=== PATIENT | female | born 1970 | race Caucasian/White ===

== ENCOUNTER 2020-10-20 09:12 | Outpatient (CLI) | payer OTHER ==
--- NOTE | 2020-10-20 09:44 | RAD ---
XR Chest Pa Lat STANDARD History: Dyspnea Comparison: Radiograph August 2015. Radiograph October 10, 2019 Findings: Prominent left nipple shadow. Concern for a new right upper lobe focus of consolidation. No pneumothorax. No significant effusion. Cardiac silhouette and mediastinal contours are within norm al limits. Impression: New ovoid area of consolidation in the right upper lobe may reflect early pneumonia. Foll ow-up recommended as malignancy cannot be totally excluded given its ovoid shape.
== END 2020-10-20 09:13 | disposition home or self-care (01) ==
LOC: BICRAD 09:12
PROVIDERS: ATTEND Internal Medicine Critical Care Medicine
DX: R06.00 Dyspnea, unspecified (principal)
CPT/HCPCS: 71046

== ENCOUNTER 2022-09-21 12:01 | Outpatient (CLI) | payer OTHER | END 2022-09-21 12:02 | disposition home or self-care (01) | LOC: BICRAD 12:01 | PROVIDERS: ATTEND Preventive Medicine Occupational Medicine | DX: Z02.71 Encounter for disability determination (principal); M25.511 Pain in right shoulder ==

== ENCOUNTER 2023-06-01 05:52 | Day surgery (SDC) | payer OTHER ==
[2023-05-27 15:18] VITALS: BMI 19.7
[2023-06-01] MEDS ORDERED: fentaNYL PF 100 MCG/2 ML SYRINGE ONE (06:13)
[2023-06-01] MEDS ORDERED: SUGAMMADEX SODIUM 200 MG/2 ML VIAL ONE (06:13)
[2023-06-01] MEDS ORDERED: Albumin 5% 250 ML ONE (06:13)
[2023-06-01] MEDS ORDERED: Thrombin 5000 UNITS/5 ML VIAL ONE (06:18)
[2023-06-01] MEDS ORDERED: Sodium Chloride 0.9% 100 ML ONE ×2 (06:47→10:54)
[2023-06-01] MEDS ORDERED: CEFAZOLIN 2 GM VIAL ONE ×2 (06:47→10:54)
[2023-06-01] MEDS ORDERED: Naloxone HCl 0.4 mg/ml Vial ONE (07:10)
[2023-06-01] MEDS ORDERED: PROPOFOL 200 MG/20 ML VIAL ONE (07:10)
[2023-06-01] MEDS ORDERED: Rocuronium Bromide 10 MG/ML (10ML VIAL) ONE (07:10)
[2023-06-01] MEDS ORDERED: Lidocaine 1% PF 5 ML VIAL ONE (07:10)
[2023-06-01] MEDS ORDERED: fentaNYL 50 mcg/mL 1 mL Vial ONE (07:24)
[2023-06-01] MEDS ORDERED: HYDROcodone/Acetaminophen 5/325 mg Tablet ONE ×2 (09:39→11:14)
[2023-06-01] MEDS ORDERED: Dexamethasone 4 mg/ml Vial ONE (11:43)
[2023-06-01] MEDS ORDERED: Gabapentin 300 MG CAP ONE (11:43)
== END 2023-06-01 12:18 | disposition home or self-care (01) ==
LOC: SDC 05:52
PROVIDERS: ATTEND Neurological Surgery
PROC: 0RG10J1 Fusion of Cervical Vertebral Joint with Synthetic Substitute, Posterior Approach, Posterior Column, Open Approach (ICD-10-PCS; principal; 2023-06-01)
DX: M47.12 Other spondylosis with myelopathy, cervical region (principal); M47.22 Other spondylosis with radiculopathy, cervical region; F32.A Depression, unspecified; J44.9 Chronic obstructive pulmonary disease, unspecified; Z98.890 Other specified postprocedural states; Z87.59 Personal history of other complications of pregnancy, childbirth and the puerperium; Z79.899 Other long term (current) drug therapy; Z88.6 Allergy status to analgesic agent
CPT/HCPCS: C1713; C1889; J1100; J2310; J2704; J3010; J3490; P9045